=== PATIENT | female | born 1990 | race Caucasian/White ===

== ENCOUNTER 2020-08-21 | Inpatient (IN) ==
[2020-08-21] MEDS ORDERED: Naloxone 0.4 MG/ML INJ IVP PRN (00:33)
[2020-08-21] MEDS ORDERED: Famotidine 20 MG/2 ML VIAL IVP PRN (00:33)
[2020-08-21] MEDS ORDERED: Metoclopramide 10 MG/2 ML VIAL IVP PRN ×2 (00:33→18:54)
[2020-08-21] MEDS ORDERED: miSOPROStoL 25 MCG TABLET PO PRN (00:33)
[2020-08-21] MEDS: Ringers Solution, Lactated 1,000 ML IVC SCH ×2 (00:59→13:13)
[2020-08-21 01:03] LABS: Basophils % 0.1 %; Eosinophils # 0.2 K/mcL (0.0-0.6); Eosinophils % 1.6 %; Hematocrit 36.3 % (35.3-44.9); Hemoglobin 12.1 g/dL (11.5-15.4); Immature Granulocytes % 0.8 % (0-4); Lymphocytes % 16.3 %; Mean Corpuscular HGB Conc 33.3 g/dL (31.6-35.5); Mean Corpuscular Hemoglobin 30.6 pg (28.0-33.3); Mean Corpuscular Volume 91.7 fL (83.0-100.0); Mean Platelet Volume 9.4 fL (9.4-12.4); Monocytes % 8.1 %; Neutrophils # 9.1 K/mcL (1.6-8.9); Platelet Count 308 K/mcL (140-400); Red Blood Count 3.96 M/mcL (3.82-4.97); Red Cell Distribution Width 13.6 % (11.5-14.5); Segmented Neutrophils % 73.1 %; White Blood Count 12.4 K/mcL (4.3-11.1)
[2020-08-21 01:22] LABS: Amphetamine Screen,Urine Negative ng/mL (Cutoff=1000); Barbiturate Screen,Urine Negative ng/mL (Cutoff=200); Benzodiazepines Screen,Urine Negative ng/mL (Cutoff=200); Cannabinoid Screen,Urine Negative ng/mL (Cutoff = 50); Cocaine Screen,Urine Negative ng/mL (Cutoff= 300); Opiate Screen,Urine Negative ng/mL (Cutoff=300); Phencyclidine Screen,Urine Negative ng/mL (Cutoff=25)
[2020-08-21 02:18] LABS: Adenovirus Not Detected (Not Detect); Bordetella Pertussis Not Detected (Not Detect); Chlamydophila pneumoniae Not Detected (Not Detect); Coronavirus 229E Not Detected (Not Detect); Coronavirus HKU1 Not Detected (Not Detect); Coronavirus NL63 Not Detected (Not Detect); Coronavirus OC43 Not Detected (Not Detect); Human Metapneumovirus Not Detected (Not Detect); Human Rhinovirus/Enterovirus Not Detected (Not Detect); Influenza A Subtype 2009 H1 Not Detected (Not Detect); Influenza B Not Detected (Not Detect); Mycoplasma pneumoniae Not Detected (Not Detect); Parainfluenza Virus 1 Not Detected (Not Detect); Parainfluenza Virus 2 Not Detected (Not Detect); Parainfluenza Virus 3 Not Detected (Not Detect); Parainfluenza Virus 4 Not Detected (Not Detect); Respiratory Syncytial Virus Not Detected (Not Detect); SARS-CoV-2 Not Detected (Not Detect)
[2020-08-21] MEDS ORDERED: *HR* Nalbuphine 10 MG/ML AMPUL ONE ×2 (02:42→06:27)
[2020-08-21] MEDS ORDERED: Oxytocin 20 units/ LR 1000 mL 20 UNIT/1,000 ML BAG IVC SCH ×2 (05:00→18:54)
[2020-08-21] MEDS ORDERED: *HR* FentaNYL (PF) 100 MCG/2 ML VIAL EP ONE (08:55)
[2020-08-21] MEDS ORDERED: Ropivacaine/PF 0.2% 20 ML VIAL EP ONE (08:55)
[2020-08-21] MEDS ORDERED: EPHEDrine 50 MG/ML VIAL IVP PRN (08:55)
[2020-08-21] MEDS ORDERED: Epidural Premix (fent/bupiv) 110 ML EP SCH (09:00)
[2020-08-21] MEDS ORDERED: Azithromycin 500 MG in 0.9 % Sodium Chloride 250 ML IVPB ONE (15:34)
[2020-08-21] MEDS ORDERED: Lidocaine/EPI 1:200k 2% PF 20 ML VIAL ONE (15:37)
[2020-08-21] MEDS ORDERED: *HR* Phenylephrine 10 MG/ML VIAL ONE (15:38)
[2020-08-21] MEDS ORDERED: CeFAZolin 2,000 MG/50 ML BAG IVPB ONE (16:00)
[2020-08-21] MEDS ORDERED: CeFAZolin Syr 3,000MG/30 ML 3,000 MG/30 ML SYRINGE IVPB ONE (16:00)
[2020-08-21] MEDS ORDERED: Ondansetron 4 MG/2 ML VIAL ONE (16:00)
[2020-08-21] MEDS ORDERED: *HR* Morphine Sulfate/PF 10 MG/10 ML AMPUL ONE (16:08)
[2020-08-21] MEDS ORDERED: Acetaminophen IV 1,000 MG/100 ML BAG IVPB ONE ×2 (16:12→16:15)
[2020-08-21] MEDS ORDERED: WATER FOR INJ IVPB ONE (16:14)
[2020-08-21] MEDS ORDERED: PROMETHAZINE IVPB ONE (16:14)
[2020-08-21] MEDS ORDERED: *HR* OxyCODONE/APAP 5/325 TABLET PO PRN (16:14)
[2020-08-21] MEDS ORDERED: Ondansetron 4 MG/2 ML VIAL IVP PRN ×2 (16:14→18:54)
[2020-08-21] MEDS ORDERED: Ibuprofen 400 MG TABLET PO PRN (16:14)
[2020-08-21] MEDS ORDERED: *HR* OxyCODONE Immed Rel 5 MG TABLET PO PRN (17:35)
[2020-08-21] MEDS ORDERED: *HR* HYDROmorphone (PF) 1 MG/ML SYRINGE IVP PRN (17:35)
[2020-08-21] MEDS ORDERED: Sennosides 8.6 MG TABLET PO PRN (18:54)
[2020-08-21] MEDS ORDERED: Simethicone 80 MG TAB.CHEW PO PRN (18:54)
[2020-08-21] MEDS: Ibuprofen 600 MG TABLET PO PRN (22:02)
[2020-08-21] MEDS: metroNIDAZOLE 500 MG TABLET PO SCH (22:02)
[2020-08-22] MEDS ORDERED: CeFAZolin 2 GM/120 ML BAG IVPB SCH
[2020-08-22 05:38] LABS: Basophils % 0.2 %; Eosinophils # 0.1 K/mcL (0.0-0.6); Eosinophils % 1.1 %; Hematocrit 30.7 % (35.3-44.9); Hemoglobin 10.1 g/dL (11.5-15.4); Immature Granulocytes % 0.5 % (0-4); Lymphocytes # 1.6 K/mcL (0.6-4.6); Lymphocytes % 13.2 %; Mean Corpuscular HGB Conc 32.9 g/dL (31.6-35.5); Mean Corpuscular Hemoglobin 30.9 pg (28.0-33.3); Mean Corpuscular Volume 93.9 fL (83.0-100.0); Mean Platelet Volume 9.4 fL (9.4-12.4); Monocytes % 8.5 %; Neutrophils # 9.4 K/mcL (1.6-8.9); Platelet Count 233 K/mcL (140-400); Red Blood Count 3.27 M/mcL (3.82-4.97); Red Cell Distribution Width 13.7 % (11.5-14.5); Segmented Neutrophils % 76.5 %; White Blood Count 12.2 K/mcL (4.3-11.1)
[2020-08-22] MEDS: Prenatal Vit/FA 1 EACH TABLET PO SCH (08:05)
[2020-08-22] MEDS: metroNIDAZOLE 500 MG TABLET PO SCH ×3 (08:05→21:04)
[2020-08-22] MEDS: Ibuprofen 600 MG TABLET PO PRN ×3 (08:05→21:04)
[2020-08-22] MEDS ORDERED: NON-FORMULARY MEDICATION 1 EACH EACH (Prenatal Caplet 1 TAB) PO SCH (09:00)
[2020-08-22] MEDS: CeFAZolin 2 GM/120 ML BAG IVPB SCH ×2 (13:21→21:07)
[2020-08-22] MEDS: *HR* OxyCODONE/APAP 5/325 TABLET PO PRN (22:01)
[2020-08-23] MEDS: Ibuprofen 600 MG TABLET PO PRN (04:26)
[2020-08-23 07:47] VITALS: BP 115/65
[2020-08-23] MEDS: Prenatal Vit/FA 1 EACH TABLET PO SCH (08:51)
[2020-08-23] MEDS: metroNIDAZOLE 500 MG TABLET PO SCH (08:52)
[2020-08-23] MEDS: *HR* OxyCODONE/APAP 5/325 TABLET PO PRN (08:52)
== END 2020-08-23 10:10 | disposition home or self-care (01) | DRG 788 ==
LOC: 1NENULAB 00:04 → 1NENUOBS 19:43
PROVIDERS: ADMIT Obstetrics & Gynecology; ATTEND Obstetrics & Gynecology